=== PATIENT | male | born 1985 | race Caucasian/White ===

== ENCOUNTER 2020-01-14 00:40 | Emergency (ER) | payer OTHER, SELFPAY ==
[2020-01-14 00:40] VITALS: BP 144/89; PULSE 99; RESP 18; O2SAT 100; BMI 22.0
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
[2020-01-14] MEDS: LIDOCAINE 1% W/EPI 1 ML SUBCUT (01:33)
[2020-01-14] MEDS: BACITRACIN OINT 0.9 GM PCKT 1 APPLIC TOP (02:18)
[2020-01-14 02:29] VITALS: BP 145/85
== END 2020-01-14 02:29 | disposition home or self-care (01) ==
PROVIDERS: Emergency Provider Emergency Medicine
DX: S01.81XA Laceration without foreign body of other part of head, initial encounter (principal); V89.2XXA Person injured in unspecified motor-vehicle accident, traffic, initial encounter
CPT/HCPCS: 12013; 70450; 70486; 72125; 99284

== ENCOUNTER → 2023-10-19 10:32 | Outpatient (CLI) | payer SELFPAY ==
[2023-10-19 22:28] LABS: Urine N gonorrhoeae NOT DETECTED
[2023-10-19 22:48] LABS: Urine Chlamydia NOT DETECTED
== END ==
PROVIDERS: PCP Physician Assistant Medical; Visit Provider Physician Assistant Medical
DX: K92.1 Melena (principal); R11.10 Vomiting, unspecified; G62.9 Polyneuropathy, unspecified; K21.9 Gastro-esophageal reflux disease without esophagitis; R05.9 Cough, unspecified
CPT/HCPCS: 87491; 87591

== ENCOUNTER → 2023-11-01 09:26 | Outpatient (CLI) | payer SELFPAY ==
[2023-11-01 20:28] LABS: Add Manual Diff / Slide Review NO; Basophils Absolute Auto 100 /uL (0-100); Basophils Percent Auto 1.1 % (0-2); Eosinophils Absolute Auto 0 /uL (0-450); Eosinophils Percent Auto 0.9 % (2-4); Hematocrit 40.5 % (41-53); Hemoglobin 13.9 g/dL (13.5-17.5); Lymphocytes Absolute Auto 1800 /uL (1100-4500); Mean Corpuscular HGB Conc 34.3 % (30-36); Mean Corpuscular Hemoglobin 36.8 PG (26-34); Mean Corpuscular Volume 107.4 fL (80-100); Monocytes Absolute Auto 400 /uL (0-900); Monocytes Percent Auto 7.3 % (3-14); Neutrophils Absolute Auto 2600 /uL (1500-7000); Neutrophils Percent Auto 53.7 % (50-75); Platelet Count 80 X10^3/uL (150-400); Red Blood Cell Count 3.77 X10^6/uL (4.5-5.9); Red Cell Distribution Width 14.4 % (11.6-14.8); White Blood Cell Count 4.9 X10^3/uL (4.5-11.0)
[2023-11-01 20:38] LABS: Alanine Aminotransferase 105 IU/L (<50); Albumin 4.8 g/dL (3.5-5.0); Albumin Globulin Ratio 1.4 (1.0-2.8); Alkaline Phosphatase 194 U/L (38-126); Aspartate Aminotransferase 362 IU/L (17-59); BUN Creatinine Ratio 12.9 (6-22); Bilirubin Total 2.6 mg/dL (0.2-1.3); Blood Urea Nitrogen 8 mg/dL (9-20); Calcium 9.8 mg/dL (8.4-10.2); Carbon Dioxide 29 mmol/L (22-32); Chloride 104 mmol/L (98-107); Cholesterol 289 mg/dL (140-199); Estimated Glomerular Filt Rate > 60 mL/min (>60); Globulin 3.4 g/dL (1.7-4.1); Glucose 129 mg/dL (70-100); HEMOLYSIS < 15 (0-50); Potassium 4.2 mmol/L (3.4-5.1); Sodium 139 mmol/L (137-145); Total Protein 8.2 g/dL (6.3-8.2); Triglycerides 75 mg/dL (35-150)
[2023-11-01 20:50] LABS: HDL Cholesterol 137 mg/dL (40-60); LDL Cholesterol Calculated 137 mg/dL (<100)
[2023-11-01 21:09] LABS: TSH w/ Reflex to FT4 1.23 uIU/mL (0.47-4.68)
[2023-11-03 05:36] LABS: RPR Screen Non Reactive (Non Reactive)
[2023-11-03 06:10] LABS: HSV 2 IGG AB 8.95 index (0.00-0.90); HSV1IGG 5.38 index (0.00-0.90)
[2023-11-03 14:58] LABS: HIV 1 & 2 Ab/Ag 4th Gen Combo NEGATIVE (NEGATIVE); Hep C Virus Ab w/Reflex Quant NEGATIVE s/c (NEGATIVE)
== END ==
PROVIDERS: PCP Physician Assistant Medical; Visit Provider Physician Assistant Medical
DX: K92.1 Melena (principal); R11.10 Vomiting, unspecified; G62.9 Polyneuropathy, unspecified; K21.9 Gastro-esophageal reflux disease without esophagitis; R05.9 Cough, unspecified
CPT/HCPCS: 80053; 80061; 84443; 85025; 86592; 86695; 86696; 86803; 87389

== ENCOUNTER 2024-06-05 11:08 | Emergency (ER) | payer OTHER, SELFPAY ==
[2024-06-05] VITALS (11 sets, daily range): BP systolic 122–141; BP diastolic 70–87; PULSE 82–107; RESP 12–23; TEMP 37.1; O2SAT 95–98; BMI 22.4
--- NOTE | 2024-06-05 11:40 | ED.ABDPAIN ---
HPI - Abdominal Pain General Chief Complaint: Abdominal Pain Stated Complaint: haven't had a bowel movement in 10 days Time Seen by Provider: 06/05/24 11:40 Source: patient Mode of arrival: Ambulatory Related Data Home Medications Medication Instructions Recorded Confirmed No Known Home Medications 10/19/23 10/19/23 Allergies Allergy/AdvReac Type Severity Reaction Status Date / Time No Known Drug Allergies Allergy Verified 10/19/23 10:20 Patient History Medical History (Updated 10/19/23 @ 06:23 by Silvana Nava PA-C) Healthy adult Social History Smoking Status: Current every day smoker Smoking Status: Current every day smoker tobacco type: cigarettes alcohol intake frequency: holidays/special occasions only Exam Initial Vital Signs Initial Vital Signs: Vital Signs Temperature 98.8 F 06/05/24 11:27 Pulse Rate 104 H 06/05/24 11:27 Respiratory Rate 18 06/05/24 11:27 Blood Pressure 136/87 06/05/24 11:27 Pulse Oximetry 98 06/05/24 11:27 Oxygen Delivery Method Room Air 06/05/24 11:27 Course Orders Ordered: ED Orders 06/05/24 11:38 Complete Blood Count AUTO DIFF Stat Comprehensive Metabolic Panel Stat Lipase Stat EKG-12 Lead Stat Ondansetron HCl (Ondansetron 4 Mg/2 Ml Inj) 4 mg IV NOW PRN PRN Reason: Nausea And Vomiting Ondansetron HCl (Ondansetron 4 Mg Odt) 4 mg PO NOW PRN PRN Reason: Nausea And Vomiting Vital Signs Vital signs: Vital Signs - 8 hr 06/05/24 11:27 Temperature 98.8 F Pulse Rate 104 H Respiratory Rate 18 Blood Pressure 136/87 Pulse Oximetry 98 Oxygen Delivery Method Room Air Discharge Plan Departure Prescriptions: No Action No Known Home Medications Referrals: Silvana Nava PA-C [Primary Care Provider] -
--- NOTE | 2024-06-05 11:56 | EKG_ITS ---
[facility] [address] [address] Test Date: 2024-06-05 Pat Name: Adrian Payne Department: [facility] Room: Gender: Male Health Safety Engineer: CHRISTI : 1985 Requested By: Order Number: [id number] Reading MD: Brennon Arce Measurements Intervals [place] Rate: 89 P: 46 WV: 132 QRS: 44 QRSD: 94 T: 10 QT: 394 QTc: 479 Interpretive Statements Normal sinus rhythm Electronically Signed On 06-06-2024 23:45:03 PST by Brennon Arce
[2024-06-05 12:12] LABS: Add Manual Diff / Slide Review NO; Basophils Absolute Auto 200 /uL (0-100); Eosinophils Absolute Auto 0 /uL (0-450); Eosinophils Percent Auto 0.2 % (2-4); Hematocrit 34.2 % (41-53); Hemoglobin 11.7 g/dL (13.5-17.5); Lymphocytes Absolute Auto 2800 /uL (1100-4500); Lymphocytes Percent Auto 17.6 % (25-40); Mean Corpuscular HGB Conc 34.3 % (30-36); Mean Corpuscular Hemoglobin 35.6 PG (26-34); Mean Corpuscular Volume 103.9 fL (80-100); Monocytes Absolute Auto 1300 /uL (0-900); Monocytes Percent Auto 7.8 % (3-14); Neutrophils Absolute Auto 11900 /uL (1500-7000); Neutrophils Percent Auto 73.4 % (50-75); Platelet Count 86 X10^3/uL (150-400); Red Blood Cell Count 3.29 X10^6/uL (4.5-5.9); Red Cell Distribution Width 16.5 % (11.6-14.8); White Blood Cell Count 16.2 X10^3/uL (4.5-11.0)
[2024-06-05 12:17] LABS: INR 1.7 (0.9-1.3); Prothrombin Time 18.8 SECONDS (9.4-12.5)
[2024-06-05 12:21] LABS: Alanine Aminotransferase 53 IU/L (<50); Albumin 3.4 g/dL (3.5-5.0); Albumin Globulin Ratio 0.8 (1.0-2.8); Alkaline Phosphatase 321 U/L (38-126); Aspartate Aminotransferase 296 IU/L (17-59); BUN Creatinine Ratio 10.7 (6-22); Bilirubin Total 10.8 mg/dL (0.2-1.3); Blood Urea Nitrogen 6 mg/dL (9-20); Calcium 7.9 mg/dL (8.4-10.2); Carbon Dioxide 26 mmol/L (22-32); Chloride 94 mmol/L (98-107); Estimated Glomerular Filt Rate > 60 mL/min (>60); Globulin 4.1 g/dL (1.7-4.1); Glucose 127 mg/dL (70-100); HEMOLYSIS < 15 (0-50); Lipase 241 U/L (23-300); Sodium 131 mmol/L (137-145); Total Protein 7.5 g/dL (6.3-8.2)
[2024-06-05 13:16] LABS: Ictotest Urine Positive (Negative)
[2024-06-05 13:17] LABS: Bacteria Urine Few (2-10); Culture Indicated Urine Cult Not Indicated; Mucus Urine 3+ (Negative); RBC Urine 1-5/HPF (0-5/HPF); Squamous Epithelial Cell Urine 10-30 /HPF (0-5/HPF); Urine Volume 10mL (spun); WBC Urine 1-5/HPF (0-5/HPF)
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
--- NOTE | 2024-06-05 16:09 | CM.SWNOTE ---
ED SPOOL SANDER Note SPOOL SANDER receives consult due to concern for patient's housing and food insecurity. Patient's PCP is Silvana Nava PA-C, Self pay and [employer] insurance listed. ED provider states that patient needs a paracentethis and is choosing to leave AMA. Patient is diagnosed with Hyperbilirubinemia, jaundice and acute alcoholic hepatitis. SPOOL SANDER enters room upon his d/c with RN. Patient denies any need to speak with SPOOL SANDER. Patient states he is going to go to [place] tomorrow, patient states he is staying in a hotel. SPOOL SANDER offers housing/long term and basic need resources, patient accepts these resources. SPOOL SANDER encourages patient to return to closest ED if symptoms worsen. Plan: patient choosing to leave AMA, resources provided. NOE Abraham
== END 2024-06-05 16:18 | disposition left against medical advice (07) ==
PROVIDERS: Emergency Provider Emergency Medicine; PCP Physician Assistant Medical
DX: K70.10 Alcoholic hepatitis without ascites (principal); E80.6 Other disorders of bilirubin metabolism; F10.90 Alcohol use, unspecified, uncomplicated
CPT/HCPCS: 36415; 74177; 80053; 81003; 81015; 83690; 85025; 85610; 93005; 99284; 99285; Q9967

== ENCOUNTER → 2024-07-04 07:05 | Outpatient (CLI) | payer OTHER, SELFPAY ==
[2024-07-04 08:53] LABS: Add Manual Diff / Slide Review NO; Basophils Absolute Auto 100 /uL (0-100); Basophils Percent Auto 0.8 % (0-2); Eosinophils Absolute Auto 100 /uL (0-450); Hematocrit 35.8 % (41-53); Hemoglobin 12.1 g/dL (13.5-17.5); Lymphocytes Absolute Auto 2000 /uL (1100-4500); Lymphocytes Percent Auto 18.5 % (25-40); Mean Corpuscular HGB Conc 33.8 % (30-36); Mean Corpuscular Hemoglobin 35.6 PG (26-34); Mean Corpuscular Volume 105.1 fL (80-100); Monocytes Absolute Auto 900 /uL (0-900); Monocytes Percent Auto 8.3 % (3-14); Neutrophils Absolute Auto 7600 /uL (1500-7000); Neutrophils Percent Auto 71.4 % (50-75); Platelet Count 83 X10^3/uL (150-400); Red Cell Distribution Width 14.2 % (11.6-14.8); White Blood Cell Count 10.6 X10^3/uL (4.5-11.0)
[2024-07-04 09:00] LABS: INR 1.3 (0.9-1.3); Prothrombin Time 14.2 SECONDS (9.4-12.5)
[2024-07-04 09:17] LABS: Alanine Aminotransferase 36 IU/L (<50); Albumin 3.6 g/dL (3.5-5.0); Albumin Globulin Ratio 1.2 (1.0-2.8); Alkaline Phosphatase 121 U/L (38-126); Aspartate Aminotransferase 70 IU/L (17-59); BUN Creatinine Ratio 19.7 (6-22); Bilirubin Total 2.2 mg/dL (0.2-1.3); Blood Urea Nitrogen 13 mg/dL (9-20); Calcium 9.2 mg/dL (8.4-10.2); Carbon Dioxide 27 mmol/L (22-32); Chloride 103 mmol/L (98-107); Estimated Glomerular Filt Rate > 60 mL/min (>60); Globulin 3.1 g/dL (1.7-4.1); Glucose 70 mg/dL (70-100); HEMOLYSIS < 15 (0-50); Potassium 4.8 mmol/L (3.4-5.1); Sodium 138 mmol/L (137-145); Total Protein 6.7 g/dL (6.3-8.2)
== END ==
LOC: LAB 07:10
PROVIDERS: PCP Physician Assistant Medical
DX: K70.10 Alcoholic hepatitis without ascites (principal)
CPT/HCPCS: 36415; 80053; 85025; 85610

== ENCOUNTER → 2024-07-13 13:59 | Outpatient (CLI) | payer OTHER, SELFPAY ==
[2024-07-13 14:56] LABS: Hematocrit 39.5 % (41-53); Hemoglobin 13.4 g/dL (13.5-17.5); Mean Corpuscular HGB Conc 33.9 % (30-36); Mean Corpuscular Hemoglobin 34.7 PG (26-34); Mean Corpuscular Volume 102.5 fL (80-100); Platelet Count 74 X10^3/uL (150-400); Red Blood Cell Count 3.86 X10^6/uL (4.5-5.9); Red Cell Distribution Width 13.8 % (11.6-14.8); White Blood Cell Count 6.8 X10^3/uL (4.5-11.0)
[2024-07-13 15:07] LABS: Alanine Aminotransferase 29 IU/L (<50); Albumin 3.8 g/dL (3.5-5.0); Albumin Globulin Ratio 1.2 (1.0-2.8); Alkaline Phosphatase 129 U/L (38-126); Aspartate Aminotransferase 67 IU/L (17-59); BUN Creatinine Ratio 30.6 (6-22); Bilirubin Total 1.9 mg/dL (0.2-1.3); Blood Urea Nitrogen 15 mg/dL (9-20); Calcium 9.7 mg/dL (8.4-10.2); Carbon Dioxide 22 mmol/L (22-32); Chloride 108 mmol/L (98-107); Estimated Glomerular Filt Rate > 60 mL/min (>60); Globulin 3.2 g/dL (1.7-4.1); Glucose 101 mg/dL (70-100); HEMOLYSIS < 15 (0-50); Potassium 4.4 mmol/L (3.4-5.1); Sodium 139 mmol/L (137-145)
[2024-07-13 17:11] LABS: Neutrophils Absolute Manual 3604 /uL (3000-5900); Total Cells Counted 100
[2024-07-13 17:12] LABS: Platelet Estimate Decr; RBC Morphology Normal Morphology
== END ==
PROVIDERS: PCP Physician Assistant Medical; Referring Provider Nurse Practitioner Family; Visit Provider Nurse Practitioner Family
DX: K70.0 Alcoholic fatty liver (principal); K70.10 Alcoholic hepatitis without ascites
CPT/HCPCS: 36415; 80053; 85025

== ENCOUNTER 2024-10-29 01:14 | Emergency (ER) | payer OTHER, SELFPAY ==
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
[2024-10-29 01:17] VITALS: BP 146/97; PULSE 97; RESP 18; TEMP 37.1; O2SAT 96
== END 2024-10-29 01:25 | disposition home or self-care (01) ==
LOC: ED 01:25
PROVIDERS: Emergency Provider Student in an Organized Health Care Education/Training Program; PCP Physician Assistant Medical
DX: Z02.89 Encounter for other administrative examinations (principal)
CPT/HCPCS: 99281

== ENCOUNTER 2024-11-08 20:26 | Emergency (ER) | payer SELFPAY ==
[2024-11-08 20:30] VITALS: BP 146/86; PULSE 98; RESP 18; TEMP 37.1; O2SAT 98; BMI 21.7
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
--- NOTE | 2024-11-08 20:56 | PC.NURSE ---
Pt c/o pain, swelling, bruising to right ankle. Pt states had ankle monitor placed 10/30/2024 and had pain and swelling to ankle, pt states that since he wears boots, has had to place ankle monitor higher and has bruising to ankle. Pictures taken and placed in chart with pt permission. This RN was able to move ankle monitor down, without tampering or removing or interfering with monitor, lower on pt's ankle. Able to fit 2 fingers under monitoring devices at this time. Pt has good pulses and movement to bilat lower extremities, pt states slight decrease in sensation to right foot. Pt requesting to have ankle monitor removed in ED due to pain, discomfort, swelling, and bruising to right ankle. Informed pt that provider will assess pt and will determine medical necessity to remove ankle monitor. Pt informed this RN that the monitoring center and his tax attorney informed pt to come to ED to have monitor removed. Call light within reach, informed of update awaiting for provider.
== END 2024-11-08 21:26 | disposition home or self-care (01) ==
PROVIDERS: Emergency Provider Student in an Organized Health Care Education/Training Program; PCP Physician Assistant Medical
DX: S90.01XA Contusion of right ankle, initial encounter (principal); W49.09XA Other specified item causing external constriction, initial encounter
CPT/HCPCS: 99281

== ENCOUNTER → 2025-04-18 15:17 | Outpatient (ROUT) | payer SELFPAY ==
[2025-04-18 15:20] LABS: Urine Drug Scr, Empl Non-NIDA See Separate Report
== END ==
PROVIDERS: PCP Physician Assistant Medical
DX: Z02.1 Encounter for pre-employment examination (principal)
CPT/HCPCS: 81099